=== PATIENT | male | born 1965 | race African-American/Black ===

== ENCOUNTER 2019-02-28 21:14 | Emergency (ER) | payer OTHER ==
[2019-02-28 21:31] VITALS: BP 162/109; PULSE 83; TEMP 97.8; BMI 31.3
--- NOTE | 2019-02-28 21:59 | PDOC ---
Documentation entered by Adalid Anna SCRIBE, acting as scribe for Miguelito Fink MD. Miguelito Fink MD: This documentation has been prepared by the Wilfrido oseguera Nirvannie, SCRIBE, under my direction and personally reviewed by me in its entirety. I confirm that the documentation accurately reflects all work, treatment, procedures, and medical decision making performed by me. History of Present Illness - General Chief Complaint: Constipation Stated Complaint: CONSTIPATION Time Seen by Provider: 02/28/19 21:36 History Source: Patient Exam Limitations: No Limitations - History of Present Illness Initial Comments: 02/28/19 21:54 HPI: The patient is a 53 year old male, with a significant past medical history of hypertension, who presents to the emergency department with, 2 days of constipation. As per patient, his last BM was 3 days ago and normally has 1 BM per day. He endorses drinking tea for his symptoms, without relief prompting his arrival to the ED. He denies any abdominal pain or usage or laxatives. He denies any recent fevers , chills, headache or dizziness. He denies any recent nausea or vomiting. He denies any recent chest pain or shortness of breath. He denies any recent dysuria, frequency, urgency or hematuria. PAST MEDICAL HISTORY: Hypertension. PAST SURGICAL HISTORY: no significant history FAMILY HISTORY: no pertinent history SOCIAL HISTORY: Pt lives with family and is employed. MEDICATIONS: reviewed ALLERGIES: As per nursing notes ROS: General: No fevers or chills, no weakness, no weight loss HEENT: No change in vision. No sore throat,. No ear pain CardioVascular: No chest pain or shortness of breath Respiratory:No cough, or wheezing. Gastrointestinal: +Constipation. no nausea, vomiting, or diarrhea, No rectal bleeding Genitourinary: No dysuria, hematuria, or frequency Musculoskeletal: No joint or muscle pain or swelling Neurologic: No headache, vertigo, dizziness or loss of consciousness Psychiatric: nor depression Skin: No rashes or easy bruising Endocrine: no increased thirst or abnormal weight change Allergic: no skin or latex allergy All other systems reviewed and normal Physical Exam: General: Well-nourished well-developed individual, no acute distress HEENT: Throat: Normal, tonsils normal, no erythema or exudate Neck: Supple, no meningeal signs, no lymphadenopathy Eyes::Pupils equal reactive and round, extraocular motion intact Chest: Nontender to palpation Cardiac: S1-S2 normal, regular rate and rhythm, no murmurs rubs or gallops Respiratory: Lungs clear to auscultation bilateral Abdomen: Soft, nondistended, normal bowel sounds, nontender to palpation diffusely Extremities: Warm, dry, no cyanosis, clubbing, or edema Skin: No rashes Neuro: Alert and oriented x3, nonfocal exam, grossly intact, normal gait Psych: Normal mood and affect 02/28/19 22:26 Assessment and plan: This is a 53-year-old male who comes in complaining of no bowel movement 2 today. Patient denies any abdominal pain and his abdominal exam was normal. Upright done that show moderate amount of constipation otherwise no evidence of obstruction. Patient given a bottle of magnesium citrate. ' Patient told to get [id number] stool softeners and laxative Dulcolax and the increase fiber in his diet Patient discharged home Past History - Past Medical History COPD: No HTN: Yes - Suicide/Smoking/Psychosocial Hx Smoking History: Never smoked *Physical Exam - Vital Signs Last Vital Signs Temp Pulse Resp BP Pulse Ox 97.8 F 83 16 162/109 H 100 02/28/19 21:29 02/28/19 21:29 02/28/19 21:29 02/28/19 21:29 02/28/19 21:29 *DC/Admit/Observation/Transfer Diagnosis at time of Disposition: Constipation Qualifiers: Constipation type: unspecified constipation type Qualified Code(s): K59.00 - Constipation, unspecified - Discharge Dispostion Disposition: HOME Condition at time of disposition: Good Decision to Admit order: No - Referrals - Patient Instructions Printed Discharge Instructions: DI for Constipation Additional Instructions: Purchase some [id number] stool softeners and laxatives and also fiber. You were given a bottle of liquid to drink for the constipation. Return to the emergency department immediately with ANY new, persistent or worsening symptoms. Continue any medications as previously prescribed by your physician. You should follow up with your primary doctor as soon as possible regarding today's emergency department visit. . Please make sure your doctor reviews the results of your emergency evaluation. Thank you for coming to the Emergency Department today for your care. It was a pleasure to see you today. Please note that your evaluation is INCOMPLETE until you follow-up with your doctor. - Post Discharge Activity
[2019-02-28] MEDS ORDERED: MAGNESIUM CITRATE 300 ML BOTTLE PO ONE (22:26)
[2019-02-28] MEDS ORDERED: MAGNESIUM CITRATE 300 ML BOTTLE ONE (22:32)
== END 2019-02-28 22:35 | disposition home or self-care (01) ==
LOC: FER 21:14
DX: K59.00 Constipation, unspecified (principal); I10 Essential (primary) hypertension
CPT/HCPCS: 74019-TC-FY; 99281-25